=== PATIENT | female | born 1995 | race Caucasian/White ===

== ENCOUNTER 2017-09-04 06:02 | Inpatient (IN) | payer OTHER ==
[~2017-09-04] VITALS: Ht 165.1 cm; Wt 73.9 kg
[2017-09-04] MEDS ORDERED: RINGERS SOLUTION,LACTATED 1,000 ML IV ONE ×2 (06:08→06:51)
[2017-09-04] MEDS ORDERED: CITRIC ACID/SODIUM CITRATE 30 ML SOLUTION UDCUP PO ONE (06:15)
[2017-09-04] MEDS ORDERED: METOCLOPRAMIDE HCL 5 MG/ML 2 ML VIAL IVP ONE (06:15)
[2017-09-04] MEDS ORDERED: MORPHINE SULFATE/PF 0.5 MG/ML 10 ML AMP ONE (06:50)
[2017-09-04] MEDS ORDERED: FentaNYL CITRATE-PF 100 MCG/2 ML VIAL ONE (06:50)
[2017-09-04] MEDS ORDERED: CeFAZolin 2 GM/DEXTROSE 50 ML IV ONE (06:50)
[2017-09-04 06:51] VITALS: BP 123/68
[2017-09-04] MEDS ORDERED: PREN1TAB80 PO (06:56)
[2017-09-04 07:12] LABS: BASOPHILS % (AUTO) 0.2 % (0.0-2.0); EOSINOPHILS % (AUTO) 1.7 % (1.0-6.0); HEMATOCRIT 36.5 % (36-46); HEMOGLOBIN 12.4 g/dL (12.0-16.0); LYMPHOCYTES % (AUTO) 20.6 % (22.0-44.0); MEAN CORPUSCULAR HGB CONC 33.9 G/dL (31.0-37.0); MEAN CORPUSCULAR VOLUME 83 fL (80-100); MONOCYTES # (AUTO) 0.7 K/uL (0.1-1.0); MONOCYTES % (AUTO) 7.2 % (2.0-9.0); NEUTROPHILS # (AUTO) 6.9 K/uL (1.8-7.7); NEUTROPHILS % (AUTO) 70.3 % (40.0-70.0); PLATELET COUNT (AUTO) 168 K/uL (150-450); RED BLOOD CELL COUNT(AUTO) 4.42 MIL/uL (4.00-5.20); RED CELL DISTRIBUTION WIDTH 15.6 % (11.5-14.5)
[2017-09-04] MEDS ORDERED: FentaNYL CITRATE-PF 100 MCG/2 ML VIAL IVP PRN ×2 (08:45)
[2017-09-04] MEDS ORDERED: NALOXONE HCL 0.4 MG/ML VIAL IVP PRN (08:45)
[2017-09-04] MEDS ORDERED: MEPERIDINE-PF 25 MG/ML SYRINGE IVP PRN (08:45)
[2017-09-04] MEDS ORDERED: NALBUPHINE HCL 10 MG/ML VIAL IVP PRN ×2 (08:45)
[2017-09-04] MEDS ORDERED: ONDANSETRON HCL 4 MG/2 ML VIAL IVP PRN ×2 (08:45)
[2017-09-04] MEDS ORDERED: ACETAMINOPHEN 1000 MG/ISO-OSM 100 ML IV ONE ×2 (08:45→09:10)
[2017-09-04] MEDS ORDERED: DiphenhydrAMINE HCL 50 MG/ML VIAL IVP PRN (08:45)
[2017-09-04] MEDS ORDERED: LANOLIN 7 GM OINTMENT TP PRN (09:00)
[2017-09-04] MEDS ORDERED: ACETAMINOPHEN/CODEINE 300-30 MG TABLET PO PRN (09:00)
[2017-09-04] MEDS ORDERED: DEXTROSE 5%-0.45% SODIUM CHL 1,000 ML IV ONE (09:48)
[2017-09-04] MEDS: DEXTROSE 5%-0.45% SODIUM CHL 1,000 ML IV SCH ×4 (09:50→22:54)
[2017-09-04] MEDS: NALBUPHINE HCL 10 MG/ML VIAL IVP PRN ×2 (13:38→19:57)
[2017-09-04] MEDS: ACETAMINOPHEN 1000 MG/ISO-OSM 100 ML IV PRN (17:27)
[2017-09-04] MEDS: DiphenhydrAMINE HCL 50 MG/ML VIAL IVP PRN (18:20)
[2017-09-04] MEDS ORDERED: OXYGEN THERAPY IH SCH ×3 (20:00)
[2017-09-04] MEDS: MAGNESIUM HYDROXIDE SUSPENSION 30 ML UDCUP PO SCH (21:26)
[2017-09-05] MEDS: DiphenhydrAMINE HCL 50 MG/ML VIAL IVP PRN (01:40)
[2017-09-05] MEDS: IBUPROFEN 800 MG TABLET PO SCH ×4 (02:00→20:35)
[2017-09-05] MEDS: ACETAMINOPHEN 1000 MG/ISO-OSM 100 ML IV PRN (03:22)
[2017-09-05] MEDS: MAGNESIUM HYDROXIDE SUSPENSION 30 ML UDCUP PO SCH ×2 (10:52→23:41)
[2017-09-05] MEDS ORDERED: OXYTOCIN 10 UNITS/ML VIAL IM ONE (12:50)
[2017-09-05] MEDS ORDERED: ONDANSETRON HCL 4 MG/2 ML VIAL IVP ONE (12:50)
[2017-09-05] MEDS ORDERED: DEXAMETHASONE SOD PHOS 4 MG/ML VIAL IVP ONE (12:50)
[2017-09-05] MEDS ORDERED: 0.9% SODIUM CHLORIDE 10 ML VIAL IVP ONE (12:50)
[2017-09-05] MEDS ORDERED: EPHEDrine SULFATE 50 MG/ML VIAL IM ONE (12:50)
[2017-09-05] MEDS: ACETAMINOPHEN/CODEINE 300-30 MG TABLET PO PRN (20:35)
[2017-09-06] MEDS: ACETAMINOPHEN/CODEINE 300-30 MG TABLET PO PRN ×2 (02:22→17:35)
[2017-09-06] MEDS: IBUPROFEN 800 MG TABLET PO SCH ×3 (02:22→17:35)
[2017-09-06] MEDS: MAGNESIUM HYDROXIDE SUSPENSION 30 ML UDCUP PO SCH (09:00)
[2017-09-07] MEDS: IBUPROFEN 800 MG TABLET PO SCH ×2 (00:13→05:59)
[2017-09-07] MEDS ORDERED: IBUP-2071 PO (09:59)
== END 2017-09-07 10:50 | disposition home or self-care (01) | DRG 766 ==
LOC: 4S 06:02 → PREOBSVTOIN 09-24 06:39
PROVIDERS: ADMIT Obstetrics & Gynecology; ATTEND Obstetrics & Gynecology
PROC: 10D00Z1 Extraction of Products of Conception, Low, Open Approach (ICD-10-PCS; principal; 2017-09-04)
DX: O75.89 Other specified complications of labor and delivery (principal); Z37.0 Single live birth; Z3A.39 39 weeks gestation of pregnancy
CPT/HCPCS: 86850; 86900; 86901; 87081; J0131; J0690; J1100; J1200; J2274; J2300; J2405; J2590; J2765; J3010; J3490; J7120